=== PATIENT | female | born 1990 | race Caucasian/White ===

== ENCOUNTER 2018-07-22 17:51 | Emergency (ER) | payer OTHER, MEDICAID, SELFPAY ==
[2018-07-22 17:57] VITALS: BP 139/81; PULSE 104; RESP 15; TEMP 36.9; O2SAT 97; BMI 25.8
[2018-07-22 18:29] LABS: WBC Urine None Seen (0-5/HPF)
[2018-07-22 18:41] LABS: Bacteria Urine Few (2-10); RBC Urine 5-10/HPF (0-5/HPF); Squamous Epithelial Cell Urine 10-30 /HPF
[2018-07-22 18:42] LABS: Culture Indicated Urine Cult Not Indicated
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
[2018-07-22] MEDS: IBUPROFEN 400 MG TABLET 800 MG PO (19:45)
[2018-07-22] MEDS: LIDOCAINE PATCH 1 EACH ADH..PATCH 2 EACH TOP (19:46)
[2018-07-22 20:33] VITALS: BP 130/72; PULSE 81; RESP 16; O2SAT 98
== END 2018-07-22 20:39 | disposition home or self-care (01) ==
PROVIDERS: Emergency Provider Internal Medicine
DX: M54.5 Low back pain (principal); M25.561 Pain in right knee
CPT/HCPCS: 72100; 81003; 81015; 81025; 99282; 99283